=== PATIENT | female | born 1970 | race Caucasian/White ===

== ENCOUNTER 2018-12-29 21:12 | Inpatient (IN) | payer OTHER ==
[~2018-12-29] VITALS: Ht 160 cm; Wt 60.8 kg
--- NOTE | ~2018-12-29 | OP ---
[facility] [address] [place] [address] OPERATIVE REPORT Name: BART COYLE Room: [address] M.R.#: [id number] Admission: 12/30/18 Attend Phys: Den Carolina Discharge: Date of : 70 Report #: [id number] THIS REPORT FOR: //name// CC: Jen Snyder SURGEON: Chilango Lee MD PREOPERATIVE DIAGNOSIS: Right ureteral stone with severe hydronephrosis and multiple kidney stones. POSTOPERATIVE DIAGNOSIS: Right ureteral stone with severe hydronephrosis and multiple kidney stones. PROCEDURE: Panendoscopy and cystoscopy, right retrograde pyelogram, right double-J stent placement. This requires 22-modifier secondary to the tortuosity of the ureter and the impaction of the stone and the large stone and multiple stones. INDICATIONS FOR PROCEDURE: This is a 48-year-old white female with a history of severe right flank pain and possible low-grade fever. She comes in, found to have on CT scan, a huge right proximal ureteral stone. Also, very large stones in the lower pole of the kidney. She was given options for treatment, was to have a right ureteral stent. She understands risks of bleeding, infection and other procedures, cardiovascular and pulmonary complications and the fact that she will need definitive treatment of the stone at a later date once the infection is cleared and the kidney has recuperated. She understands these risks and wished to proceed. DESCRIPTION OF PROCEDURE: Informed consent was obtained. The patient was sterilely prepped and draped in dorsal lithotomy position and give preoperative antibiotics. Cystoscopy was carried out. No abnormalities seen in the bladder. She did have a cystocele. Right retrograde pyelogram was performed and the normal distal ureter; however, the very tortuous ureter at the level of the stone and above the stone is markedly hydronephrotic above that. I was able then to leapfrog a sensor wire around the stone using a 5-Tajik open-ended catheter and then I exchanged that for a Super Stiff wire after I got good images of the renal pelvis, which was markedly dilated. I do not think she has ureteropelvic junction obstruction. I think almost all of this is from the obstructing stone from the look of the anatomy. She did have what looked to be calcified stones in the lower pole area as witnessed by the CT scan, some of that could have been a milk of calcium, though in the kidney. The wire was then exchanged for a 6 x 28 contour stent showing good curl in the kidney and good curl in the bladder. The patient tolerated it well and was taken to recovery room in good condition. Plan will be to follow her up in the office. [place] [address] OPERATIVE REPORT Name: BART COYLE Room: [address] M.R.#: [id number] Admission: 12/30/18 Attend Phys: Den Carolina Discharge: Date of : 70 Report #: [id number] ureteroscopy or if it does look like it is milk of calcium, she would not need any percutaneous approaches, but could be able to get all of her ureteral stone out with ureteroscopy. We will discuss that with the patient. By: [id number] Lee MD /nt
[2018-12-30] VITALS: BP 126/81
[2018-12-30] MEDS ORDERED: TOPAMAX 100 MG100 MG PO ×2 (00:09→00:17)
[2018-12-30] MEDS ORDERED: IMITREX100 MG PO (00:09)
[2018-12-30] MEDS ORDERED: ADDERALL 30 MG30 MG PO ×2 (00:10→00:11)
[2018-12-30] MEDS ORDERED: IRON325 PO (00:10)
[2018-12-30] MEDS ORDERED: TYLENOL325 MG PO (00:24)
[2018-12-30 08:10] VITALS: BP 133/86
[2018-12-30 09:50] LABS: ABSOLUTE EOSINOPHILS 0.1 thou/uL (0.0-0.7); ABSOLUTE MONOCYTES 0.7 thou/uL (0.0-1.2); ABSOLUTE NEUTROPHILS 5.9 thou/uL (1.6-8.1); BASOPHILS 0.5 %; EOSINOPHILS 1.3 %; HEMATOCRIT 39.5 % (37.0-47.0); HEMOGLOBIN 13.3 gm/dL (12.0-15.0); LYMPHOCYTES 13.1 %; MCH 29.7 pg (26.0-34.0); MCHC 33.6 g/dL (28.0-37.0); MCV 88.3 fL (80.0-100.0); MONOCYTES 9.1 %; NUCLEATED RBCS 0 /100WBC; PLATELET COUNT* 117 thou/uL (150-400); RBC 4.47 mil/uL (4.20-5.00); RDW-CV 13.1 % (10.5-14.5); WBC 7.8 thou/uL (4.0-11.0)
[2018-12-30 10:00] LABS: CALCIUM 9.3 mg/dL (8.5-10.1); CREATININE 1.6 mg/dL (0.6-1.3); POTASSIUM 4.1 mmol/L (3.5-5.1)
[2018-12-30 16:36] LABS: URINE BILIRUBIN NEGATIVE (Negative); URINE BLOOD TRACE (Negative); URINE CLARITY CLEAR; URINE COLOR YELLOW; URINE GLUCOSE-RANDOM NEGATIVE (Negative); URINE KETONES TRACE (Negative); URINE LEUKOCYTES-REFLEX NEGATIVE (Negative); URINE NITRITE-REFLEX NEGATIVE (Negative); URINE PROTEIN NEGATIVE (Negative); URINE SPECIFIC GRAVITY 1.015 (1.005-1.030); URINE UROBILINOGEN 0.2 E.U./dl (0.2-1.0)
[2018-12-30 16:44] LABS: AMP/METHAMP POSITIVE (Negative); BARBITURATES Negative (Negative); BENZODIAZEPINES Negative (Negative); COCAINE Negative (Negative); METHADONE Negative (Negative); OPIATES POSITIVE (Negative); PCP Negative (Negative); THC Negative (Negative)
[2018-12-30 20:45] VITALS: BP 108/68
[2018-12-31 03:18] LABS: ABSOLUTE LYMPHOCYTES 0.6 thou/uL (0.8-5.3); ABSOLUTE MONOCYTES 0.2 thou/uL (0.0-1.2); ABSOLUTE NEUTROPHILS 4.4 thou/uL (1.6-8.1); BASOPHILS 0.4 %; EOSINOPHILS 0.1 %; HEMATOCRIT 36.3 % (37.0-47.0); HEMOGLOBIN 12.1 gm/dL (12.0-15.0); LYMPHOCYTES 11.8 %; MCH 29.2 pg (26.0-34.0); MCHC 33.3 g/dL (28.0-37.0); MCV 87.7 fL (80.0-100.0); MONOCYTES 3.9 %; MPV 9.7 fl. (7.2-11.1); NUCLEATED RBCS 0 /100WBC; PLATELET COUNT* 131 thou/uL (150-400); POLYS 83.8 %; RBC 4.13 mil/uL (4.20-5.00); RDW-CV 12.8 % (10.5-14.5); WBC 5.3 thou/uL (4.0-11.0)
[2018-12-31 03:26] LABS: ALBUMIN 2.7 g/dL (3.4-5.0); CALCIUM 9.2 mg/dL (8.5-10.1); CREATININE 1.3 mg/dL (0.6-1.3); POTASSIUM 4.6 mmol/L (3.5-5.1); TOTAL BILIRUBIN 0.2 mg/dL (<0.1-1.0); TOTAL PROTEIN 6.1 g/dL (6.4-8.2)
[2018-12-31 07:10] VITALS: BP 120/80
[2018-12-31 10:08] VITALS: BP 120/80
[2018-12-31] MEDS ORDERED: CIPRO250 M1 PO (10:33)
[2018-12-31] MEDS ORDERED: NORCO 5-325 TA1 EAC1 PO (10:34)
[2018-12-31] MEDS ORDERED: SENNA S TABLET1 EACH PO (10:34)
[2018-12-31 10:40] VITALS: BP 120/80
[2018-12-31 10:42] VITALS: BP 120/80
[2018-12-31 11:57] VITALS: BP 120/80
== END 2018-12-31 11:57 | disposition home or self-care (01) | DRG 660 ==
LOC: M.ORTHSURG 21:12
PROVIDERS: Family Medicine; ADMIT Internal Medicine
PROC: 0T768DZ Dilation of Right Ureter with Intraluminal Device, Via Natural or Artificial Opening Endoscopic (ICD-10-PCS; principal; 2018-12-30)
PROC: BT1D1ZZ Fluoroscopy of Right Kidney, Ureter and Bladder using Low Osmolar Contrast (ICD-10-PCS; principal; 2018-12-30)
DX: N13.2 Hydronephrosis with renal and ureteral calculous obstruction (principal); K56.7 Ileus, unspecified; N17.9 Acute kidney failure, unspecified; F98.8 Other specified behavioral and emotional disorders with onset usually occurring in childhood and adolescence; D50.9 Iron deficiency anemia, unspecified; F17.210 Nicotine dependence, cigarettes, uncomplicated; G43.909 Migraine, unspecified, not intractable, without status migrainosus; Z80.1 Family history of malignant neoplasm of trachea, bronchus and lung; Z79.899 Other long term (current) drug therapy